=== PATIENT | female | born 1945 | race Caucasian/White ===

== ENCOUNTER → 2018-03-02 | Outpatient (CLI) | payer OTHER ==
[~2018-03-02] MED LIST: CIPROFLOXACIN500 M1 PO; FLOMAX PO; NAPROSYN500 MG PO; NOHOMEMEDICATIONS; PERCOCET 5-3251 EACH PO; ZOFRAN ODT4 MG PO
== END ==
LOC: M.RAD 08:47
DX: Z12.31 Encounter for screening mammogram for malignant neoplasm of breast (principal); M85.89 Other specified disorders of bone density and structure, multiple sites; N95.2 Postmenopausal atrophic vaginitis; Z78.0 Asymptomatic menopausal state

== ENCOUNTER → 2018-04-21 | Outpatient (CLI) | payer OTHER | LOC: M.ULTRA 08:46 | DX: E04.1 Nontoxic single thyroid nodule (principal); E83.52 Hypercalcemia; M85.89 Other specified disorders of bone density and structure, multiple sites; Z78.0 Asymptomatic menopausal state ==

== ENCOUNTER → 2020-12-23 | Outpatient (CLI) | payer MEDICARE | LOC: M.RAD 08:45 | PROVIDERS: ATTEND Registered Nurse Diabetes Educator | DX: Z12.31 Encounter for screening mammogram for malignant neoplasm of breast (principal); Z78.0 Asymptomatic menopausal state; Z79.899 Other long term (current) drug therapy ==